=== PATIENT | male | born 1990 | race Caucasian/White ===

== ENCOUNTER 2017-08-13 17:40 | Emergency (ER) | payer OTHER ==
[2017-08-13 17:55] VITALS: BP 129/64; PULSE 63; RESP 17; TEMP 98.8
--- NOTE | 2017-08-13 19:05 | CT ---
EXAMINATION TYPE: CT brain wo con DATE OF EXAM: 08/13/2017 COMPARISON: 02/07/2016 HISTORY: Headache CT DLP: 1135 mGycm. Automated Exposure Control for Dose Reduction was Utilized. TECHNIQUE: CT scan of the head is performed without contrast. FINDINGS: Ventricles and sulci appear normal. There is no mass effect nor midline shift. There is no sign of intracranial hemorrhage. The calvarium is intact. CONCLUSION: Normal unenhanced head CT scan. No change.
--- NOTE | 2017-08-13 19:12 | ED ---
Eye Problem HPI - General Chief complaint: Eye Problems Stated complaint: VISUAL DISTURBANCE RT EYE, HEADACHE 2 DAYS Time Seen by Provider: 08/13/17 17:58 Source: patient Mode of arrival: ambulatory Limitations: no limitations - History of Present Illness Initial comments: 27-year-old male patient presented to the emergency department today for evaluation of visual disturbance. Patient reports for the last 3 days he has had and is to the right eye. Patient states it appears as if there is a shade pulled retirement down over the right eye. States he is unable to see anything in his upper visual field. He states that he has had a couple of mild headaches but nothing very significant. He states that he did have an optometry appointment in March 2017 and states that he could not see in the upper visual field during that appointment either. Patient states that this is the first time he has seen the black shade. He denies any eye pain or pressure. Denies any eye drainage. Denies any numbness, tingling, dizziness, or weakness. Patient denies any recent rash, fever, chills, shortness breath, chest pain, abdominal pain, nausea, vomiting, diarrhea, constipation, hematuria , dysuria, urinary urgency, urinary frequency, or any other complaints. - Related Data Home Medications Medication Instructions Recorded Confirmed No Known Home Medications [No 02/07/16 02/07/16 Known Home Medications] Allergies Allergy/AdvReac Type Severity Reaction Status Date / Time No Known Allergies Allergy Verified 08/13/17 17:52 Review of Systems ROS Statement: Those systems with pertinent positive or pertinent negative responses have been documented in the HPI. ROS Other: All systems not noted in ROS Statement are negative. Past Medical History Past Medical History: No Reported History History of Any Multi-Drug Resistant Organisms: None Reported Past Surgical History: No Surgical Hx Reported Past Psychological History: No Psychological Hx Reported Smoking Status: Current every day smoker Past Alcohol Use History: None Reported Past Drug Use History: None Reported General Exam Limitations: no limitations General appearance: alert, in no apparent distress, other (This is a well- developed, well-nourished adult male patient in no acute distress. Vital signs upon presentation are temperature 98.8F, pulse 63, respirations 17, blood pressure 129/64, pulse ox 97% on room air.) Eye exam: Present: normal appearance, PERRL, EOMI. Absent: scleral icterus, conjunctival injection, periorbital swelling ENT exam: Present: normal exam, normal oropharynx, mucous membranes moist Respiratory exam: Present: normal lung sounds bilaterally. Absent: respiratory distress, wheezes, rales, rhonchi, stridor Cardiovascular Exam: Present: regular rate, normal rhythm, normal heart sounds. Absent: systolic murmur, diastolic murmur, rubs, gallop, clicks Neurological exam: Present: alert, oriented X3, CN II-XII intact, other ( Strength in all 4 extremities is 5/5) Psychiatric exam: Present: normal affect, normal mood Skin exam: Present: warm, dry, intact, normal color. Absent: rash Course Vital Signs 08/13/17 17:53 Temperature 98.8 F Pulse Rate 63 Respiratory 17 Rate Blood Pressure 129/64 O2 Sat by Pulse 97 Oximetry Medical Decision Making - Medical Decision Making 27-year-old male patient presents to the emergency department today for complaints of visual disturbance to the right eye. Physical examination is unremarkable. Pupils are equal and reactive. Patient is neurologically intact. We did perform a computed tomography scan of the brain which was normal. My attending Dr. Campbell did speak to the federal agent on-call who will see patient in the office at 0830 tomorrow morning. I did discuss results of CT and plan with the patient. I instructed him to return here immediately for any new, worsening, or concerning symptoms. He verbalizes understanding and agrees with this plan. - Radiology Data Radiology results: report reviewed, image reviewed Computed tomography scan of the brain without contrast was performed, ventricles and sulci appear normal. There is no mass effect or midline shift. There is no sign of intracranial hemorrhage. The calvarium is intact. Conclusion by Dr. Laird shows normal unenhanced head computed tomography scan. No change. Disposition Clinical Impression: Subjective visual disturbance, right eye Disposition: HOME SELF-CARE Condition: Good Instructions: Blurred Vision (ED) Additional Instructions: Follow-up with ophthalmology in the morning. You will be seeing Dr. Rocha listed below. He will see her in office at 8:30 AM. Return here immediately for any new, worsening, or concerning symptoms. Referrals: Pushpa Morfin MD [Primary Care Provider] - 1-2 days Ally Rocha MD [STAFF PHYSICIAN] - 1-2 days Time of Disposition: 19:35
== END 2017-08-13 19:43 | disposition home or self-care (01) ==
LOC: EC 17:40
DX: H53.10 Unspecified subjective visual disturbances (principal); F17.200 Nicotine dependence, unspecified, uncomplicated
CPT/HCPCS: 70450; 99284